=== PATIENT | male | born 1940 | race Caucasian/White ===

== ENCOUNTER 2017-10-03 22:33 | Emergency (ER) | payer OTHER ==
[~2017-10-03] VITALS: Ht 170.2 cm; Wt 70.9 kg
[2017-10-03 22:39] VITALS: Ht 170.2 cm; Wt 70.9 kg
[2017-10-03 23:49] VITALS: BP 126/78
== END 2017-10-04 00:05 | disposition home or self-care (01) ==
LOC: ED 22:33
DX: J02.9 Acute pharyngitis, unspecified (principal); K21.9 Gastro-esophageal reflux disease without esophagitis